=== PATIENT | female | born 1955 | race Caucasian/White ===

== ENCOUNTER 2021-12-16 19:34 | Inpatient (IN) | payer MEDICARE, OTHER ==
[~2021-12-16] VITALS: Ht 162.6 cm; Wt 67.7 kg
[2021-12-16 21:12] LABS: Basophils # (auto) 0.1 10 ^3/uL (0-0.2); Basophils % (auto) 0.7 % (0.0-2.0); Eosinophils # (auto) 0.4 10 ^3/uL (0-0.8); Eosinophils % (auto) 3.4 % (0.0-7.0); Hemoglobin 14.6 g/dL (12.2-16.2); Lymphocytes # (auto) 1.8 10 ^3/uL (0.4-5.4); Lymphocytes % (auto) 15.5 % (10.0-50.0); Mean Corpuscular Hemoglobin 29.3 pg (28.0-32.0); Monocytes # (auto) 0.8 10 ^3/uL (0-1.3); Monocytes % (auto) 7.3 % (0.0-12.0); Neutrophils # (auto) 8.3 10 ^3/uL (1.6-8.6); Neutrophils % (auto) 73.1 % (37.0-80.0); Nucleated Red Blood Cells % 0.1 %; Red Cell Distribution Width 13.8 % (11.8-14.3); White Blood Cell 11.3 10^3/uL (4.4-10.8)
[2021-12-16 21:24] LABS: Albumin 3.5 g/dL (3.4-5.0); Calcium 8.7 mg/dL (8.5-10.1); Magnesium 1.9 mg/dL (1.6-2.6); Potassium 4.6 mmol/L (3.5-5.1)
[2021-12-16 21:28] LABS: Bilirubin, Total 0.5 mg/dL (0.2-1.0); Total Protein 6.9 g/dL (6.4-8.2)
[2021-12-16 21:37] LABS: INR 0.99 (0.9-1.15)
[2021-12-16] MEDS ORDERED: IOHEXOL 350 MG/ML 100ML IJ ONE (23:44)
[2021-12-16] MEDS ORDERED: cefTRIAXone 1GM/50ML D5W 50 ML IV ONE (23:45)
[2021-12-16] MEDS ORDERED: AZITHROMYCIN 500MG/ 250ML 250 ML IV ONE (23:45)
[2021-12-17] MEDS ORDERED: MORPHINE SULFATE INJECTION 2 MG/ML SYRG IV PRN (01:15)
[2021-12-17] MEDS ORDERED: ACETAMINOPHEN 325 MG TAB PO PRN (01:15)
[2021-12-17] MEDS ORDERED: NITROGLYCERIN 0.4 MG SL TAB SL PRN (01:15)
[2021-12-17] MEDS ORDERED: DEXTROSE (50%) 50ML SYRG IV PRN (01:15)
[2021-12-17 01:43] LABS: Urine Bacteria NONE SEEN /hpf (None Seen); Urine Blood Negative /uL (Negative); Urine WBC 1 /hpf (0 - 5)
[2021-12-17 01:57] LABS: Urine Specific Gravity > 1.050 (1.001-1.035)
[2021-12-17] MEDS ORDERED: GABA300C10 PO (04:17)
[2021-12-17] MEDS ORDERED: METF-372 PO (04:17)
[2021-12-17] MEDS: HYDROcodone-ACET 5/325MG TAB PO PRN ×3 (04:34→23:17)
[2021-12-17] MEDS: ONDANSETRON HCL 4 MG/2 ML VIAL IV PRN ×3 (04:34→18:20)
[2021-12-17 04:46] VITALS: BP 125/60
[2021-12-17] MEDS: ACCU-CHEK COMFORT CURVE STRIP VI SCH ×4 (06:26→23:09)
[2021-12-17] MEDS: InsuLIN REG 1unit/0.01ml Soln (100units/ml) SC SCH ×4 (06:27→23:14)
[2021-12-17] MEDS ORDERED: ADENOSINE 55 MG in GIVE UN-DILUTED 0 ML IV ONE (08:15)
[2021-12-17 09:00] VITALS: BP 110/63
[2021-12-17] MEDS: ASPirin 81 mg TAB PO SCH (09:38)
[2021-12-17] MEDS: ENOXAPARIN SOD 40 MG/0.4 ML SYRINGE SC SCH (09:38)
[2021-12-17] MEDS ORDERED: PANTOPRAZOLE 40 MG TAB PO SCH (10:00)
[2021-12-17 13:00] VITALS: BP 126/72
[2021-12-17] MEDS: SUCRALFATE 1 GM/10 ML ORAL SUSP PO SCH ×2 (15:59→23:05)
[2021-12-17 17:00] VITALS: BP 125/74
[2021-12-17 22:00] VITALS: BP 117/67
[2021-12-17] MEDS: ATORVASTATIN 20 MG TAB PO SCH (23:05)
[2021-12-17] MEDS: PANTOPRAZOLE 40 MG TAB PO SCH (23:06)
[2021-12-18 05:00] VITALS: BP 123/57
[2021-12-18] MEDS: InsuLIN REG 1unit/0.01ml Soln (100units/ml) SC SCH ×4 (06:05→23:52)
[2021-12-18] MEDS: ACCU-CHEK COMFORT CURVE STRIP VI SCH ×4 (06:06→23:51)
[2021-12-18] MEDS: SUCRALFATE 1 GM/10 ML ORAL SUSP PO SCH ×4 (06:07→23:50)
[2021-12-18 06:22] LABS: Basophils # (auto) 0 10 ^3/uL (0-0.2); Basophils % (auto) 0.4 % (0.0-2.0); Eosinophils # (auto) 0.6 10 ^3/uL (0-0.8); Eosinophils % (auto) 6.9 % (0.0-7.0); Hemoglobin 14.3 g/dL (12.2-16.2); Lymphocytes # (auto) 1.8 10 ^3/uL (0.4-5.4); Lymphocytes % (auto) 20.8 % (10.0-50.0); Mean Corpuscular Hemoglobin 29.3 pg (28.0-32.0); Mean Corpuscular Hgb Conc. 33.9 g/dL (32.0-36.0); Mean Corpuscular Volume 86.4 fL (80.0-100.0); Monocytes # (auto) 0.6 10 ^3/uL (0-1.3); Neutrophils # (auto) 5.6 10 ^3/uL (1.6-8.6); Neutrophils % (auto) 64.9 % (37.0-80.0); Nucleated Red Blood Cells % 0.1 %; Red Blood Cells 4.86 10^6/uL (4.0-5.20); White Blood Cell 8.6 10^3/uL (4.4-10.8)
[2021-12-18 06:30] LABS: BUN/Creatinine Ratio 38.8; Calcium 8.8 mg/dL (8.5-10.1); Potassium 3.7 mmol/L (3.5-5.1)
[2021-12-18 08:30] VITALS: BP 114/69
[2021-12-18] MEDS ORDERED: ADENOSINE 57 MG in GIVE UN-DILUTED 0 ML IV ONE (09:00)
[2021-12-18] MEDS: PANTOPRAZOLE 40 MG TAB PO SCH ×2 (11:22→23:51)
[2021-12-18] MEDS: ENOXAPARIN SOD 40 MG/0.4 ML SYRINGE SC SCH (11:23)
[2021-12-18] MEDS: ASPirin 81 mg TAB PO SCH (11:23)
[2021-12-18] MEDS: NICOTINE 21MG/24 HR TOPICAL PATCH TD SCH (11:26)
[2021-12-18 12:20] VITALS: BP 130/75
[2021-12-18 17:00] VITALS: BP 135/81
[2021-12-18 22:00] VITALS: BP 131/69
[2021-12-18] MEDS: ATORVASTATIN 20 MG TAB PO SCH (23:51)
[2021-12-19 05:00] VITALS: BP 139/82
[2021-12-19] MEDS: SUCRALFATE 1 GM/10 ML ORAL SUSP PO SCH ×4 (06:14→21:59)
[2021-12-19] MEDS: InsuLIN REG 1unit/0.01ml Soln (100units/ml) SC SCH ×4 (06:15→22:12)
[2021-12-19] MEDS: ACCU-CHEK COMFORT CURVE STRIP VI SCH ×4 (06:15→22:05)
[2021-12-19 09:00] VITALS: BP 143/78
[2021-12-19] MEDS ORDERED: diphenhdrAMINE HCL 25 MG CAP PO PRN (09:15)
[2021-12-19] MEDS: ASPirin 81 mg TAB PO SCH (09:25)
[2021-12-19] MEDS: ENOXAPARIN SOD 40 MG/0.4 ML SYRINGE SC SCH (09:25)
[2021-12-19] MEDS: PANTOPRAZOLE 40 MG TAB PO SCH ×2 (09:25→21:59)
[2021-12-19] MEDS: ALPRAZolam 0.5 MG TAB PO PRN ×2 (09:25→21:58)
[2021-12-19] MEDS: NICOTINE 21MG/24 HR TOPICAL PATCH TD SCH (09:26)
[2021-12-19 13:00] VITALS: BP 115/84
[2021-12-19 17:00] VITALS: BP 122/66
[2021-12-19] MEDS: ATORVASTATIN 20 MG TAB PO SCH (21:58)
[2021-12-19 22:00] VITALS: BP 123/72
[2021-12-20 05:02] VITALS: BP 109/64
[2021-12-20] MEDS: ACCU-CHEK COMFORT CURVE STRIP VI SCH ×4 (06:50→22:05)
[2021-12-20] MEDS: InsuLIN REG 1unit/0.01ml Soln (100units/ml) SC SCH ×4 (06:52→22:08)
[2021-12-20] MEDS: SUCRALFATE 1 GM/10 ML ORAL SUSP PO SCH ×4 (06:54→21:58)
[2021-12-20 09:00] VITALS: BP 116/69
[2021-12-20] MEDS ORDERED: DOCUSATE SOD 100 MG CAP PO PRN (10:00)
[2021-12-20] MEDS: PANTOPRAZOLE 40 MG TAB PO SCH ×2 (10:41→21:58)
[2021-12-20] MEDS: ASPirin 81 mg TAB PO SCH (10:41)
[2021-12-20] MEDS: ENOXAPARIN SOD 40 MG/0.4 ML SYRINGE SC SCH (10:42)
[2021-12-20] MEDS: NICOTINE 21MG/24 HR TOPICAL PATCH TD SCH (10:42)
[2021-12-20 13:00] VITALS: BP 131/75
[2021-12-20 16:47] VITALS: BP 141/77
[2021-12-20] MEDS: ALPRAZolam 0.5 MG TAB PO PRN (21:58)
[2021-12-20] MEDS: ATORVASTATIN 20 MG TAB PO SCH (21:58)
[2021-12-20 22:00] VITALS: BP 151/85
[2021-12-21] VITALS (9 sets, daily range): BP systolic 133–156; BP diastolic 69–88
[2021-12-21 05:02] LABS: Basophils # (auto) 0.1 10 ^3/uL (0-0.2); Basophils % (auto) 0.9 % (0.0-2.0); Hematocrit 40.7 % (36.0-46.0); Lymphocytes # (auto) 1.8 10 ^3/uL (0.4-5.4); Mean Corpuscular Hemoglobin 29.5 pg (28.0-32.0); Mean Corpuscular Hgb Conc. 34.4 g/dL (32.0-36.0); Mean Corpuscular Volume 85.6 fL (80.0-100.0); Monocytes # (auto) 0.6 10 ^3/uL (0-1.3); Monocytes % (auto) 8.1 % (0.0-12.0); Neutrophils # (auto) 3.3 10 ^3/uL (1.6-8.6); Red Blood Cells 4.75 10^6/uL (4.0-5.20); Red Cell Distribution Width 13.5 % (11.8-14.3); White Blood Cell 6.8 10^3/uL (4.4-10.8)
[2021-12-21 05:21] LABS: BUN/Creatinine Ratio 35.7; Calcium 8.4 mg/dL (8.5-10.1); Potassium 3.3 mmol/L (3.5-5.1)
[2021-12-21 05:25] LABS: Partial Thromboplastin Time 27.1 sec (23.6-33.0)
[2021-12-21] MEDS: SUCRALFATE 1 GM/10 ML ORAL SUSP PO SCH ×4 (07:00→21:18)
[2021-12-21] MEDS: ACCU-CHEK COMFORT CURVE STRIP VI SCH ×4 (07:05→21:18)
[2021-12-21] MEDS: InsuLIN REG 1unit/0.01ml Soln (100units/ml) SC SCH ×4 (07:11→21:19)
[2021-12-21] MEDS ORDERED: POTASSIUM CHL 20 Meq TABLET PO ONE (08:00)
[2021-12-21] MEDS: ENOXAPARIN SOD 40 MG/0.4 ML SYRINGE SC SCH (10:00)
[2021-12-21] MEDS: ASPirin 81 mg TAB PO SCH (10:00)
[2021-12-21] MEDS: PANTOPRAZOLE 40 MG TAB PO SCH ×2 (10:00→21:18)
[2021-12-21] MEDS: NICOTINE 21MG/24 HR TOPICAL PATCH TD SCH (10:00)
[2021-12-21] MEDS ORDERED: LIDOCAINE 2%HCL (LOCAL ANESTH.) INJ 10ml MDV ONE (10:59)
[2021-12-21] MEDS ORDERED: IODIXANOL 320MG/ML 100ML BTL IV ONE (10:59)
[2021-12-21] MEDS ORDERED: HEPARIN SODIUM (PORCINE) 5000 UNITS/ML 1ML VIAL ONE (11:03)
[2021-12-21] MEDS ORDERED: ANGIOMAX 250 MG VIAL IV ONE (11:03)
[2021-12-21] MEDS ORDERED: VERAPAMIL 2.5MG/ML INJ 2ML VIAL IV ONE (11:04)
[2021-12-21] MEDS ORDERED: fentaNYL CITRATE 100 MCG/2 ML VL ONE (11:04)
[2021-12-21] MEDS ORDERED: SODIUM CHL 0.9% 0 ML ONE (11:05)
[2021-12-21] MEDS: MIDAZOLAM HCL 2MG/2ML 2ml VIAL (1mg/ml) ONE (11:05)
[2021-12-21] MEDS: ALPRAZolam 0.5 MG TAB PO PRN (19:11)
[2021-12-21] MEDS: ATORVASTATIN 20 MG TAB PO SCH (21:18)
[2021-12-22 05:00] VITALS: BP 122/69
[2021-12-22] MEDS: ACCU-CHEK COMFORT CURVE STRIP VI SCH (06:53)
[2021-12-22] MEDS: SUCRALFATE 1 GM/10 ML ORAL SUSP PO SCH (06:53)
[2021-12-22] MEDS: InsuLIN REG 1unit/0.01ml Soln (100units/ml) SC SCH (06:56)
[2021-12-22] MEDS ORDERED: SODIUM CHLORIDE LOCK 10 ML ONE (07:46)
[2021-12-22] MEDS ORDERED: diphenhdrAMINE HCL 50 MG/1 ML VL ONE (07:47)
[2021-12-22] MEDS ORDERED: MIDAZOLAM HCL 5 MG/ML-1ML VIAL ONE (07:47)
[2021-12-22] MEDS ORDERED: LIDOCAINE VISCOUS 2% 15ML UD ONE (07:47)
[2021-12-22] MEDS ORDERED: fentaNYL CITRATE 100 MCG/2 ML VL ONE (07:48)
[2021-12-22 09:00] VITALS: BP 157/76
[2021-12-22] MEDS: MIDAZOLAM HCL 2MG/2ML 2ml VIAL (1mg/ml) ONE (09:03)
[2021-12-22] MEDS: PANTOPRAZOLE 40 MG TAB PO SCH (11:24)
[2021-12-22] MEDS: NICOTINE 21MG/24 HR TOPICAL PATCH TD SCH (11:24)
[2021-12-22] MEDS ORDERED: NIC21P TOP (11:38)
[2021-12-22] MEDS ORDERED: PANT40T PO (11:38)
[2021-12-22] MEDS ORDERED: ATO40T PO (11:51)
[2021-12-22] MEDS ORDERED: METF-372 PO (11:51)
[2021-12-22 12:05] VITALS: BP 122/69
== END 2021-12-22 14:07 | disposition home or self-care (01) | DRG 286 ==
LOC: ER 19:34 → EDBD 19:34 → TELE 12-17 01:14 → TELE-CENTR 12-17 03:20
PROVIDERS: ADMIT Nurse Practitioner; ATTEND Family Medicine
PROC: 4A023N7 Measurement of Cardiac Sampling and Pressure, Left Heart, Percutaneous Approach (ICD-10-PCS; principal; 2021-12-21)
PROC: B211YZZ Fluoroscopy of Multiple Coronary Arteries using Other Contrast (ICD-10-PCS; 2021-12-21)
PROC: B215YZZ Fluoroscopy of Left Heart using Other Contrast (ICD-10-PCS; 2021-12-21)
PROC: 0DJ08ZZ Inspection of Upper Intestinal Tract, Via Natural or Artificial Opening Endoscopic (ICD-10-PCS; 2021-12-22)
DX: R07.9 Chest pain, unspecified (principal); J96.00 Acute respiratory failure, unspecified whether with hypoxia or hypercapnia; K29.70 Gastritis, unspecified, without bleeding; E11.9 Type 2 diabetes mellitus without complications; E78.5 Hyperlipidemia, unspecified; F17.200 Nicotine dependence, unspecified, uncomplicated; K44.9 Diaphragmatic hernia without obstruction or gangrene; I10 Essential (primary) hypertension; F41.9 Anxiety disorder, unspecified; E78.00 Pure hypercholesterolemia, unspecified; Z20.822 Contact with and (suspected) exposure to COVID-19; K80.20 Calculus of gallbladder without cholecystitis without obstruction; Z80.1 Family history of malignant neoplasm of trachea, bronchus and lung; Z79.84 Long term (current) use of oral hypoglycemic drugs; Z82.49 Family history of ischemic heart disease and other diseases of the circulatory system; Z83.3 Family history of diabetes mellitus; Z71.6 Tobacco abuse counseling
CPT/HCPCS: 36415; 43235; 71045; 71275; 76705; 78452; 80048; 80053; 81001; 81025; 82962; 83735; 83880; 84443; 84484; 85025; 85610; 85730; 86850; 86900; 86901; 93005; 93017; 93306; 93458; 96365; 96367; 99152; G0378; J0153; J0696; J1815; J2001; J2250; J2405; Q9967